=== PATIENT | female | born 1985 ===

== ENCOUNTER 2021-12-27 04:59 | Day surgery (SDC) | payer OTHER | END 2021-12-27 14:05 | disposition home or self-care (01) | LOC: CIR.AMB 04:59 → SURG 11:15 → EDSTATUS 11:15 → CIR.AMB 11:15 | PROVIDERS: ATTEND Specialist | DX: K80.10 Calculus of gallbladder with chronic cholecystitis without obstruction (principal); K82.8 Other specified diseases of gallbladder; K42.9 Umbilical hernia without obstruction or gangrene; Z20.822 Contact with and (suspected) exposure to COVID-19; E78.5 Hyperlipidemia, unspecified; Z71.6 Tobacco abuse counseling; F17.210 Nicotine dependence, cigarettes, uncomplicated ==